=== PATIENT | male | born 1990 | race Caucasian/White ===

== ENCOUNTER 2022-01-21 14:39 | Emergency (ER) | payer MEDICAID ==
[~2022-01-21] VITALS: Ht 160 cm; Wt 82.0 kg
[2022-01-21 14:49] VITALS: BP 121/72
== END 2022-01-21 18:58 | disposition left against medical advice (07) ==
LOC: ER 14:39
DX: Z53.21 Procedure and treatment not carried out due to patient leaving prior to being seen by health care provider (principal); I49.9 Cardiac arrhythmia, unspecified
CPT/HCPCS: 93005